=== PATIENT | female | born 1960 | race Caucasian/White ===

== ENCOUNTER 2019-05-17 12:05 | Outpatient (REF) | payer OTHER, SELFPAY ==
[2019-05-17 22:27] LABS: COMMENT (LAB VIEW ONLY) 90.78 mg/dL; Microalb ug/mg Crea 14.4 ug/mg Cr
== END 2019-05-17 12:25 ==
LOC: NCHCN 12:05
PROVIDERS: PCP Family Medicine; Visit Provider Family Medicine
DX: E11.65 Type 2 diabetes mellitus with hyperglycemia (principal)
CPT/HCPCS: 82043; 82570

== ENCOUNTER 2019-05-30 02:18 | Outpatient (CLI) | payer OTHER, SELFPAY ==
--- NOTE | 2019-05-30 11:00 | DIABASSESS_ITS ---
DESCRIPTION: Marquita Edmond presents for diabetes?self management. She is medically managed for hypertension and cholesterol.? A1c 8. NUTRITION:? Gained 20 pounds over past 8 years but only 3 over the past 2 years.? She has always?loved candy.? 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 Veggies?with Progresso soup for lunch. She likes sandwiches but tries to stay away; sometimes skips lunch.? Marquita has macaroni meatballs or pizza for supper, for example. Loves her wine? She has stopped some habits that she recognized as unhealthy such as 2 cranberry muffins in AM.?? Marquita is not physically active.? She denies significant stress; loves her work but hates the 2 hour commute.?? Intolerant to Metformin and starting Victoza when it arrives; does not monitor blood sugars currently. INTERVENTION;? Reviewed diabetes food guide focused on carbohydrate identification and portions. Discussed mindful eating concepts. Discussed physical activity; monitoring of blood sugars; medication benefits and precautions. PLAN:? Marquita will:? begin walking Monitor blood sugar before bed. Attempt to limit grains and sugar. She is aware there is more and will be in touch for follow up as she feels the need.
== END 2019-05-30 02:38 ==
PROVIDERS: PCP Family Medicine; Visit Provider Dietitian, Registered
DX: E11.9 Type 2 diabetes mellitus without complications (principal); Z79.84 Long term (current) use of oral hypoglycemic drugs; Z71.3 Dietary counseling and surveillance
CPT/HCPCS: 97802

== ENCOUNTER 2019-11-27 07:43 | Emergency (ER) | payer OTHER, SELFPAY ==
[2019-11-27 07:51] VITALS: BP 159/80; PULSE 70; RESP 16; TEMP 36.8; O2SAT 97
--- NOTE | 2019-11-27 07:55 | ED.GENADUL_ITS ---
Discharge Plan Disposition Patient Disposition: HOME Condition: Improving Discharge Details Chief Complaint: FlankPain Clinical Impression: Sacro-iliac pain Primary Care Provider: Andreina Hough ED Provider: Samir Melchor Home Meds and New Rx's Prescriptions: New methocarbamol 500 mg tablet See Rx Instructions .ROUTE .COMPLEX PRN (Reason: Back pain or spasm) Qty: 14 RF: 0 oxycodone 5 mg tablet 5 mg PO Q8H PRNQty: 4 RF: 0 Continued metoprolol tartrate 25 MG tablet 75 mg PO DAILY RF: 0 simvastatin 40 MG tablet 40 mg PO DAILY RF: 0 fluoxetine [Prozac] 20 MG capsule 20 mg PO DAILY RF: 0 cholecalciferol (vitamin D3) 1,000 UNITS tablet 1,000 units PO DAILY RF: 0 Discharge Instructions Instructions: Sacroiliitis (ED) Additional Instructions: Remove Lidoderm patch in 12 hours time as we discussed. Trial methocarbamol today for lower back pain and may perform gentle massage area as we discussed. Return if you develop a rash, fever, worsening pain, change to urine, or any other acute concerns. Please follow-up with Dr. Hough in clinic next week as planned. May use oxycodone as prescribed for severe/breakthrough pain. Small, frequent sips of fluid so that you maintain hydration. Stand Alone Forms: Work Release Medical Decision Making 59-year-old female presents with onset left flank pain yesterday. Is been fairly constant but does come and somewhat of waves. Similar but not as severe as previous left-sided kidney stone. She not had a fever. She did vomit. She arrives ER afebrile with a pulse in the 70s, blood pressure slightly elevated. Differential diagnosis includes pyelonephritis, renal colic. IV placed, labs obtained, patient given small fluid bolus, ketorolac, ondansetron, as well as a 0.5 mg dose of hydromorphone. Laboratories are reassuring. She does note a small elevation of the white blood cell count to 11, hematocrit 41, platelets 405. Chemistries essentially un remarkable. Urinalysis notes specific gravity 1.025, otherwise negative. CT images: 1. No evidence of nephrolithiasis or obstructive uropathy. 2. Two sclerotic foci in the pelvis. These may represent bone islands. Nonemergent nuclear medicine bone scan may be obtained for further evaluation. 3. The findings were discussed with the emergency department on the date of the examination. On reevaluation, patient does seem to localize more towards the SI joint on the left. We discussed the findings today as well as differential diagnosis. We will trial Lidoderm patch, methocarbamol, few/scant opioid if needed. She has pre-standing follow-up with Dr. Hough clinic. She does understand that a nonemergent nuclear medicine bone scan will help to further elucidate the sclerotic foci of the bony pelvis on the right side. Lab Data Lab results reviewed: Yes I reviewed the patient's lab results. Labs: Laboratory Results - last 24 hr 11/27/19 11/27/19 11/27/19 07:35 08:30 08:30 WBC 11.05 H RBC 4.58 Hgb 13.6 Hct 41.1 MCV 89.7 MCH 29.7 MCHC 33.1 RDW 13.3 Plt Count 405 H MPV 9.4 Immature Gran % 0.2 Neutrophils % 75.5 Lymphocytes % 13.8 Monocytes % 9.9 Eosinophils % 0.5 Basophils % 0.1 Absolute Neutrophils 8.34 H Absolute Lymphocytes 1.52 Absolute Monocytes 1.09 H Absolute Eosinophils 0.06 Absolute Basophils 0.01 Sodium 138 Potassium 4.2 Chloride 101 Carbon Dioxide 28.9 Anion Gap 8.1 BUN 18 Creatinine 0.87 Estimated GFR/1.73 m2 >= 60.00 Glucose 133 H Calcium 9.1 Total Bilirubin 0.4 AST 20 ALT 37 Alkaline Phosphatase 85 Total Protein 7.7 Albumin 3.9 Urine Color Yellow Urine Clarity Clear Urine pH 6.5 Ur Specific [place] 1.025 Urine Protein Negative Urine Ketones Negative Urine Blood Negative Urine Nitrite Negative Urine Bilirubin Negative Urine Urobilinogen 0.2 Ur Leukocyte Esterase Negative Urine Glucose Negative HPI General Mode of arrival: ambulatory . Date/Time Provider Initiated Documentation: 11/27/19 07:45 . Limitations to Documentation: no limitations . Information obtained by: patient . History of Present Illness 59 year old F presents to the emergency department with the chief complaint of Stabbing L flank pain yesterday, described as moderate and similar to prior episodes, Quality is described as stabbing, and is localized to the back and left. Patient started experiencing this hour(s) and it has been constant. No relieving factors improve symptom(s), No exacerbating factors reported . Patient notes nausea/vomiting. Patient did receive the following treatments prior to arrival, other (Ibuprofen 800 mg at 4 AM) Related Data Home Medications Medication Instructions Recorded Confirmed fluoxetine [Prozac] 20 mg PO DAILY 09/18/13 11/27/19 metoprolol tartrate 75 mg PO DAILY 09/18/13 11/27/19 simvastatin 40 mg PO DAILY 09/18/13 11/27/19 cholecalciferol (vitamin D3) 1,000 units PO DAILY 09/27/16 11/27/19 methocarbamol See Rx Instructions .ROUTE 11/27/19 .COMPLEX PRN #14 tab oxycodone 5 mg PO Q8H PRN #4 tab 11/27/19 Previous Rx's Medication Instructions Recorded methocarbamol See Rx Instructions .ROUTE 11/27/19 .COMPLEX PRN #14 tab oxycodone 5 mg PO Q8H PRN #4 tab 11/27/19 Allergies Allergy/AdvReac Type Severity Reaction Status Date / Time No Known Allergies Allergy Unverified 11/27/19 07:56 General Stated Complaint: FlankPain FRANCISCO: 3 Review of Systems Narrative: 6 systems reviewed and otherwise negative. [facility] Medical History (Updated 11/27/19 @ 09:44 by Samir Melchor MD) Kidney calculus (Chronic) Social History Smoking/Tobacco Use Status: Never Alcohol Intake: current Alcohol Intake frequency: a few times a month Alcohol type: wine Drug use: Never Details: Drinks wine socially on days off. Do you feel safe at home: Yes Do you feel safe in your relationship?: Yes Exam Narrative Exam Narrative: GEN: awake, alert, oriented 3. Pleasant, well groomed, interactive. HEAD: Normocephalic, atraumatic ENT: Mucous membranes moist, oropharynx unremarkable, External ear exam unrema rkable EYES: PERRL, EOMI NECK: Full ROM, no CJ, no menigismus CHEST/RESP: Nontender, clear to auscultation bilateral, no wheeze/rhonchi/rales CARDIOVASCULAR: RRR, no murmur, rub lu. 2+ Rad pulse bilateral ABDOMEN: Tender left flank to percussion. Anterior abdomen is soft, nontender, no mass. +Bowel sounds EXT: Full ROM, no edema, no rash Neuro: Grossly normal neurologic exam, conversant, interactive. Psych: Speech fluent, thoughts congruent, affect normal Course Vital Signs Vital signs: Vital Signs Temperature 36.8 C 11/27/19 07:51 Pulse 70 11/27/19 07:51 Respiratory Rate 16 11/27/19 07:51 Blood Pressure 159/80 H 11/27/19 07:51 Pulse Oximetry 97 11/27/19 07:51 Temperature 36.8 C 11/27/19 07:51 Temperature Source Oral 11/27/19 07:51 Pulse 70 11/27/19 07:51 Respiratory Rate 16 11/27/19 07:51 Blood Pressure 159/80 H 11/27/19 07:51 Blood Pressure Position Sitting 11/27/19 07:51 Pulse Oximetry 97 11/27/19 07:51 Oxygen Delivery Method Room Air 11/27/19 07:51 Oxygen Flow Rate 0 11/27/19 07:51 Pain Level 8 11/27/19 07:51
[2019-11-27 08:09] LABS: Bilirubin Negative (Negative); Blood Negative (Negative); Clarity Clear (Clear); Glucose Negative (Negative); Ketones Negative (Negative); Leukocyte Esterase Negative (Negative); Nitrite Negative (Negative); Specific Gravity 1.025 (1.005-1.025); Urobilinogen 0.2 EU/dL (Up TO 0.2); pH 6.5 (5-8)
[2019-11-27] MEDS: Ondansetron 4 MG/2 ML VIAL IVP (08:36)
[2019-11-27] MEDS: Ketorolac 30 MG/ML VIAL IVP (08:36)
[2019-11-27] MEDS: Normal Saline 1,000 ML 1000 ML IV (08:36)
[2019-11-27] MEDS: Normal Saline Flush 10 ML SYR IVP ×2 (08:37→09:09)
[2019-11-27 08:52] LABS: Abs Immature Grans 0.02 k/cumm (0.0-0.09); Absolute Basophil Count 0.01 k/cumm (0.0-0.2); Absolute Eosinophil Count 0.06 k/cumm (0.0-0.7); Absolute Lymphocyte Count 1.52 k/cumm (1.2-3.4); Absolute Monocyte Count 1.09 k/cumm (0.11-0.7); Absolute Neutrophil Count 8.34 k/cumm (1.2-6.7); Basophils % 0.1; Eosinophils % 0.5; HCT 41.1 % (36.0-46.0); HGB 13.6 g/dL (12.0-15.5); Immature Grans % 0.2 %; Lymphocytes % 13.8; Mean Corp. HGB Concentration 33.1 g/dL (32.0-36.0); Mean Corpuscular Hemoglobin 29.7 pg (27.0-33.0); Mean Corpuscular Volume 89.7 fL (80-95); Mean Platelet Volume 9.4 fL (8.0-11.0); Monocytes % 9.9; Neutrophils % 75.5; Platelet Count 405 x1000/uL (130-400); RBC 4.58 m/cumm (4.00-5.20); RBC Distribution Width 13.3 % (11.7-14.6); White Blood Cell Count 11.05 k/cumm (4.4-10.8)
--- NOTE | 2019-11-27 09:00 | DI.CT_ITS ---
EXAM: CT RENAL COLIC WO CLINICAL HISTORY: Left flank pain. TECHNIQUE: Imaging Protocol: Axial computed tomography images with coronal and sagittal reformatted images were created and reviewed. COMPARISON: No exams were available for comparison FINDINGS: ABDOMEN: Lung Bases: Normal where visualized. Liver: Normal density. No measurable mass. Gallbladder and biliary tract: No radiodense calculus or biliary ductal dilation. Pancreas: Normal density, no abnormal calcifications or inflammatory process. Spleen: Normal. Kidneys: Normal size, contour and axis. No radiodense stones or obstructive uropathy. No masses seen. Adrenal glands: No masses seen. Lymph nodes: Within normal limits. Abdominal Aorta: Abdominal portion non-dilated. Atherosclerosis. PELVIS: Bladder: Symmetric distention, no gross wall thickening. Bowel: There is colonic diverticulosis but no evidence of acute diverticulitis. No evidence of bowel obstruction or inflammation. No evidence of an acute appendicitis. Peritoneal cavity: No ascites, collection or mesenteric inflammatory response. Reproductive organs: Within normal limits. Bones: There is a sclerotic round focus in the right iliac bone. There is a small sclerotic focus in the right sacrum. These are nonspecific and may represent bone islands. No associated destructive lesion or soft tissue mass is appreciated. Soft Tissues: Within normal limits. IMPRESSION: 1. No evidence of nephrolithiasis or obstructive uropathy. 2. Two sclerotic foci in the pelvis. These may represent bone islands.Nonemergent nuclear medicine b one scan may be obtained for further evaluation. 3. The findings were discussed with the emergency department on the date of the examination. DATA REPOSITORY: All CT scans at this facility are submitted to the National Radiology Data Registry (NRDR) Dose Index Registry (DIR) with the [employer] (A[employer]). RADIATION OPTIMIZATION: All CT scans at this facility use at least one of these dose optimization te chniques: automated exposure control; mA and/or kV adjustment per patient size (includes targeted exa ms where dose is matched to clinical indication); or iterative reconstruction.
[2019-11-27 09:05] LABS: ALT 37 U/L (14-59); AST 20 U/L (15-37); Albumin 3.9 g/dL (3.4-5.0); Alkaline Phosphatase 85 U/L (46-116); Anion Gap 8.1 mmol/L (3-11); BUN 18 mg/dL (7-18); Bilirubin, Total 0.4 mg/dL (0.2-1.0); CO2 28.9 mmol/L (21.0-32.0); CREATININE 0.87 mg/dL (0.55-1.02); Calcium 9.1 mg/dL (8.5-10.1); Chloride 101 mmol/L (98-107); Glucose 133 mg/dL (74-106); Potassium 4.2 mmol/L (3.5-5.1); Sodium 138 mmol/L (136-145); Total Protein 7.7 g/dL (6.4-8.2)
[2019-11-27] MEDS: HYDROmorphone 2 MG/ML VIAL 0.5 MG IVP (09:08)
[2019-11-27] MEDS: Lidocaine 5% Patch 1 PATCH TP (09:48)
[2019-11-27 09:51] VITALS: BP 150/77; PULSE 65; RESP 18; TEMP 36.8; O2SAT 100
[2019-12-01 13:03] LABS: Hemoglobin A1C 7.1 % (3.8-5.6)
== END 2019-11-27 10:03 | disposition home or self-care (01) ==
PROVIDERS: Emergency Provider Emergency Medicine; PCP Family Medicine
DX: M53.3 Sacrococcygeal disorders, not elsewhere classified (principal)
CPT/HCPCS: 80053; 96361; 96374; 96375; 99285; 74176; 81003; 83036; 85025; 99284; J1885; J2405

== ENCOUNTER 2021-01-29 16:53 | Outpatient (REF) | payer OTHER, SELFPAY ==
--- NOTE | 2021-01-29 13:30 | PAPFT_PTH ---
PATIENT: Marquita Edmond LOC: NCN #:[id number] AGE/SX: 60/F ROOM: RE01/29/[address]: Andreina Hough : 1960 BED: DIS: 01/29/2021 SPEC #: [id number] RECD: 01/30/21 12:59 STATUS: PAMELA REMar #: [id number] MARGARITA: 01/29/21 13:[address]: Andreina Hough DEPT: PENDING SALE TO [facility] Cytology RECD BY: Elham Reyna Tissues: 1 - CX/ENDOCX FOR PAP SMEARS Procedures: PAP THIN PREP/UVM Screening HPV DNA PROBE Comments: [id number]
== END 2021-01-29 16:54 | disposition home or self-care (01) ==
LOC: NCHCN 16:53
PROVIDERS: PCP Family Medicine; Visit Provider Family Medicine
DX: Z12.4 Encounter for screening for malignant neoplasm of cervix (principal); Z11.51 Encounter for screening for human papillomavirus (HPV); Z00.00 Encounter for general adult medical examination without abnormal findings
CPT/HCPCS: 88142; 87624

== ENCOUNTER 2021-07-02 01:26 | Outpatient (CLI) | payer OTHER, SELFPAY ==
[2021-07-02 08:46] VITALS: BP 130/62; PULSE 65; TEMP 36.6; O2SAT 96
[2021-07-02 08:51] VITALS: BP 130/62; PULSE 65; RESP 16; TEMP 36.6; O2SAT 97
[2021-07-02 09:20] VITALS: BP 144/81; PULSE 61; TEMP 36.1; O2SAT 95
[2021-07-02 09:40] VITALS: BP 146/83; PULSE 62; TEMP 37.2; O2SAT 95
[2021-07-02 10:12] VITALS: BP 117/78; RESP 14; TEMP 36.6; O2SAT 96
[2021-07-02] MEDS: Normal Saline 500 ML 30 ML IV (10:28)
[2021-07-02] MEDS: Normal Saline Flush 10 ML SYR IVP (10:29)
[2021-07-02 10:48] VITALS: BP 126/85; PULSE 63; RESP 14; TEMP 36.8; O2SAT 96
== END 2021-07-02 01:27 | disposition home or self-care (01) ==
PROVIDERS: PCP Family Medicine; Visit Provider Family Medicine
DX: U07.1 COVID-19 (principal)
CPT/HCPCS: 96365

== ENCOUNTER 2021-08-01 15:04 | Outpatient (REF) | payer OTHER, SELFPAY ==
[2021-08-01 19:55] LABS: COMMENT (LAB VIEW ONLY) 181.66 mg/dL; Microalb ug/mg Crea 6.2 ug/mg Cr
== END 2021-08-01 15:05 | disposition home or self-care (01) ==
LOC: NCHCN 15:04
PROVIDERS: PCP Family Medicine; Visit Provider Family Medicine
DX: E11.9 Type 2 diabetes mellitus without complications (principal)
CPT/HCPCS: 82043; 82570

== ENCOUNTER 2021-12-15 18:34 | Outpatient (REF) | payer OTHER, SELFPAY ==
[2021-12-17 11:52] LABS: COVID-19 RT-PCR UVMMC Result Negative (Negative)
== END 2021-12-15 18:35 | disposition home or self-care (01) ==
LOC: NCHCN 18:34
PROVIDERS: PCP Family Medicine; Visit Provider Family Medicine
DX: Z20.822 Contact with and (suspected) exposure to COVID-19 (principal); R09.81 Nasal congestion
CPT/HCPCS: U0003

== ENCOUNTER 2022-05-04 17:34 | Outpatient (REF) | payer OTHER, SELFPAY ==
[2022-05-05 17:35] LABS: Albumin, Ur < 0.6 mg/dL (See Note)
== END 2022-05-04 17:35 | disposition home or self-care (01) ==
LOC: NCHCN 17:34
PROVIDERS: PCP Family Medicine; Visit Provider Family Medicine
DX: E11.9 Type 2 diabetes mellitus without complications (principal)
CPT/HCPCS: 82043; 82570

== ENCOUNTER 2023-03-12 16:24 | Outpatient (REF) | payer OTHER, SELFPAY ==
[2023-03-12 19:55] LABS: COMMENT (LAB VIEW ONLY) 75.37 mg/dL; Microalb ug/mg Crea 7.7 ug/mg Cr
== END 2023-03-12 16:25 | disposition home or self-care (01) ==
LOC: NCHCN 16:24
PROVIDERS: PCP Family Medicine; Visit Provider Family Medicine
DX: E11.9 Type 2 diabetes mellitus without complications (principal)
CPT/HCPCS: 82043; 82570

== ENCOUNTER 2024-04-23 10:18 | Emergency (ER) | payer BC, SELFPAY ==
[2024-04-23 10:24] VITALS: BP 148/78; PULSE 83; RESP 12; TEMP 36.7; O2SAT 95
[2024-04-23 10:30] VITALS: RESP 14
--- NOTE | 2024-04-23 10:45 | ED.GENADUL_ITS ---
Discharge Plan Disposition Patient Disposition: Home Condition: Stable Discharge Details Clinical Impression: COVID Primary Care Provider: Andreina Hough ED Provider: Ken Mercado Home Meds and New Rx's Prescriptions: New Paxlovid 300 mg (150 mg x 2)-100 mg tablets,dose pack See Rx Instructions .ROUTE .COMPLEX Qty: 30 0RF Rx Instructions: take TWO 150 mg tablets of nirmatrelvir with ONE 100 mg tablet of ritonavir twice daily for 5 days Continued metoprolol tartrate 25 MG tablet 75 mg PO DAILY fluoxetine [Prozac] 20 MG capsule 60 mg PO DAILY methylphenidate HCl 18 mg tablet extended release 24hr 18 mg PO DAILY Trulicity 3 mg/0.5 mL pen injector 3 mg SUBCUT .weekly methocarbamol 500 mg tablet See Rx Instructions .ROUTE .COMPLEX PRN (Reason: Back pain or spasm) Qty: 14 0RF Rx Instructions: 500 to 1000 mg every 4-6 hours as needed. Held simvastatin 40 MG tablet 40 mg PO DAILY Hold Instructions: Resume on 05/03/24. Discharge Instructions Additional Instructions: Do not resume the simvastatin until 5 days after you finish the Paxlovid If not better within a week follow-up with your primary care provider If you feel more ill or feel significant shortness of breath return to the emergency department for reevaluation HPI General Mode of arrival: ambulatory . Date/Time Provider Initiated Documentation: 04/23/24 10:18 . Limitations to Documentation: no limitations . Information obtained by: patient . History of Present Illness 63 year old F presents to the emergency department with the chief complaint of covid symptoms, described as moderate, Patient started experiencing this day(s) (3) and it has been constant. No relieving factors improve symptom(s), No exacerbating factors reported . Patient notes cough; denies fever/chills. Patient did receive the following treatments prior to arrival, none Related Data Home Medications ?Medication ?Instructions ?Recorded ?Confirmed fluoxetine 20 mg capsule (Prozac) 60 mg PO DAILY 09/18/13 04/23/24 metoprolol tartrate 25 mg tablet 75 mg PO DAILY 09/18/13 04/23/24 simvastatin 40 mg tablet 40 mg PO DAILY 09/18/13 04/23/24 methocarbamol 500 mg tablet See Rx Instructions .Route 11/27/19 04/23/24 .COMPLEX PRN Back pain or spasm #14 tabs dulaglutide 3 mg/0.5 mL 3 mg subcut .weekly 04/23/24 04/23/24 subcutaneous pen injector (Trulicity) methylphenidate HCl 18 mg 18 mg PO DAILY 04/23/24 04/23/24 tablet,extended release 24 hr nirmatrelvir 300 mg (150 mg See Rx Instructions PO .COMPLEX 04/23/24 x2)-ritonavir 100 mg tablet,dose #30 dose pk pack (Paxlovid) Previous Rx's ?Medication ?Instructions ?Recorded methocarbamol 500 mg tablet See Rx Instructions .Route 11/27/19 .COMPLEX PRN Back pain or spasm #14 tabs nirmatrelvir 300 mg (150 mg See Rx Instructions PO .COMPLEX 04/23/24 x2)-ritonavir 100 mg tablet,dose #30 dose pk pack (Paxlovid) Allergies Allergy/AdvReac Type Severity Reaction Status Date / Time No Known Allergies Allergy Unverified 04/23/24 10:27 General Stated Complaint: GenMedical FRANCISCO: 4 Review of Systems All systems reviewed & are unremarkable except as noted in HPI and below Constitutional Constitutional: Denies fever(s) and Denies weakness Cardiovascular Cardiovascular: Denies chest pain and Denies dyspnea Respiratory Respiratory: Reports cough and Denies dyspnea Gastrointestinal Gastrointestinal: Denies abdominal pain, Denies nausea and Denies vomiting Integumentary/Breasts Skin/Breast: Denies rash Neurologic Neurologic: Denies weakness Exam Const General: no acute distress Orientation: alert HENDE Head: normal to inspection Ears: external ears normal General nose exam: external nose normal Mouth: moist mucous membranes Eyes General: appearance normal, both eyes and all related structures Neck Neck: normal visual inspection Resp Effort & Inspection: normal respiratory effort and able to speak in complete sentences Auscultation: clear to auscultation bilaterally and no wheezes Cardio Rate: regular rate Skin General skin exam: no rashes or lesions noted Neuro General: patient alert and patient oriented x3 Extrem General: normal to inspection Psych Mental Status: mental status grossly normal Course Vital Signs Vital signs: Vital Signs Temperature 36.7 C 04/23/24 10:24 Pulse 83 04/23/24 10:24 Respiratory Rate 12 04/23/24 10:24 Blood Pressure 148/78 H 04/23/24 10:24 Pulse Oximetry 95 04/23/24 10:24 Temperature 36.7 C 04/23/24 10:24 Temperature Source Oral 04/23/24 10:24 Pulse 83 04/23/24 10:24 Respiratory Rate 14 04/23/24 10:30 Respiratory Effort Normal, Non-Labored 04/23/24 10:30 Respiratory Depth Normal 04/23/24 10:30 Respiratory Pattern Normal 04/23/24 10:30 Blood Pressure 148/78 H 04/23/24 10:24 Blood Pressure Position Supine 04/23/24 10:24 Pulse Oximetry 95 04/23/24 10:24 Oxygen Delivery Method Room Air 04/23/24 10:24 Oxygen Flow Rate 0 04/23/24 10:24 Pain Level 0 04/23/24 10:24 Medical Decision Making 63-year-old female comes in with 3 days of sore throat, sneezing, dry cough and tested positive for COVID at home today. She denies any difficulty breathing, vomiting. She is speaking in full sentences on arrival in no distress. She has no significant hypoxia. Clear lung sounds she appears well otherwise. Do not feel any other labs or imaging indicated. Given her reassuring exam doubt pneumonia or sepsis. She she would prefer to start Paxlovid, she had labs done at [facility] on 11 April which showed a GFR 90. She was advised to hold her simvastatin and not start until 5 days after starting the Paxlovid. She is stable for discharge will follow-up with her PCP as needed return precautions given Differential Diagnosis Differential Diagnosis: COVID, URI Quality:SDOH Health Related Social Needs: No Data to Display PFSH All Active Problems (Updated 04/23/24 @ 10:48 by Ken Mercado MD) COVID (Acute) Medical History (Updated 04/23/24 @ 10:48 by Ken Mercado MD) Kidney calculus Social History Smoking/Tobacco Use Status: Never Smoking risk assessment performed?: Yes Alcohol Intake: current Alcohol Intake frequency: a few times a month Alcohol type: wine Drug use: Never Details: Drinks wine socially on days off. Housing: house Do you feel safe at home: Yes Do you feel safe in your relationship?: Yes
[2024-04-23 11:18] VITALS: BP 148/78; PULSE 83; RESP 14; TEMP 36.7; O2SAT 95
== END 2024-04-23 11:18 | disposition home or self-care (01) ==
LOC: ER 11:14
PROVIDERS: Emergency Provider Emergency Medicine; PCP Family Medicine
DX: U07.1 COVID-19 (principal); R05.1 Acute cough; R11.0 Nausea; R51.9 Headache, unspecified; R53.83 Other fatigue
CPT/HCPCS: 99283